=== PATIENT | female | born 1950 | race Hispanic/Latino ===

== ENCOUNTER 2019-05-08 07:38 | Day surgery (SDC) | payer MEDICARE ==
[2019-05-07 10:42] LABS: BASOPHILS % (AUTO) 0.5 % (0.0-5.0); EOSINOPHILS % (AUTO) 1.8 % (0.0-8.0); HEMATOCRIT 39.2 % (36-48); LYMPHOCYTES % (AUTO) 24.7 % (21.0-51.0); MEAN CORPUSCULAR HEMOGLOBIN 30.6 pg (27.0-33.0); MEAN CORPUSCULAR HGB CONC 33.1 g/dL (32.0-36.0); MEAN CORPUSCULAR VOLUME 92.5 fL (79-99); MONOCYTES % (AUTO) 8.2 % (3.0-13.0); NEUTROPHILS % (AUTO) 64.8 % (40.0-77.0); PLATELET COUNT (AUTO) 233 K/uL (130-400); RED BLOOD CELL COUNT(AUTO) 4.24 MIL/uL (4.00-5.50); RED CELL DISTRIBUTION WIDTH 13.5 % (11.0-15.5); WHITE BLOOD COUNT (AUTO) 6.1 K/uL (4.8-10.8)
[2019-05-07 10:51] LABS: CREATININE 0.8 mg/dL (0.5-1.5)
[2019-05-07 10:54] VITALS: BP 182/80
[2019-05-08] VITALS (18 sets, daily range): BP systolic 120–173; BP diastolic 37–78
[~2019-05-08] VITALS: Ht 144.8 cm; Wt 78.6 kg
[~2019-05-08 07:38] MED LIST: CEFAZOLIN SODIUM 1 GM VIAL IVP SCH; NAPR-1192 PO
[2019-05-08] MEDS ORDERED: LACTATED RINGERS 1000ML 1,000 ML IV ONE (07:58)
[2019-05-08] MEDS ORDERED: ONDANSETRON HCL 4 MG/2 ML VIAL ONE (08:46)
[2019-05-08] MEDS ORDERED: FENTANYL CITRATE PF 50 MCG/1 ML 2ML VIAL ONE (08:46)
[2019-05-08] MEDS ORDERED: PROPOFOL 10 MG/ML 20ML VIAL IV ONE (08:46)
[2019-05-08] MEDS ORDERED: LIDOCAINE PF 2% 5ML ABBOJECT ONE (08:46)
[2019-05-08] MEDS ORDERED: MIDAZOLAM HCL 1 MG/ML 2ML VIAL ONE (08:46)
[2019-05-08] MEDS ORDERED: DEXAMETHASONE SOD PHOSPHATE 10MG/ML 1ML VIAL ONE (08:46)
[2019-05-08] MEDS ORDERED: ROCURONIUM 10MG/1ML SYR 10 MG/ML ML ONE (08:47)
[2019-05-08] MEDS ORDERED: EPHEDRINE SULFATE 50 MG/ML AMPULE ONE (09:09)
[2019-05-08] MEDS ORDERED: GLYCOPYRROLATE 1 MG/5 ML SYRINGE ONE (09:26)
[2019-05-08] MEDS ORDERED: NEOSTIGMINE 5MG/5ML SYR IV ONE (09:26)
== END 2019-05-08 11:35 | disposition home or self-care (01) ==
LOC: DAH 07:38
PROVIDERS: ATTEND Surgery
DX: D17.0 Benign lipomatous neoplasm of skin and subcutaneous tissue of head, face and neck (principal); E11.9 Type 2 diabetes mellitus without complications; E66.01 Morbid (severe) obesity due to excess calories
CPT/HCPCS: 21554; 36415; 80048; 82948; 85025; 88304; A4450; A4452; A4930; J1100; J2001; J2250; J2405; J2704; J2710; J3010; J3490 ×2; J7120

== ENCOUNTER 2019-10-09 10:41 | Emergency (ER) | payer MEDICARE ==
[~2019-10-09 10:41] MED LIST changes: -CEFAZOLIN SODIUM 1 GM VIAL IVP SCH; -NAPR-1192 PO; +PANT40TA PO
[2019-10-09] MEDS ORDERED: ONDANSETRON HCL 4 MG/2 ML VIAL ONE (11:02)
[2019-10-09] MEDS ORDERED: KETOROLAC TROMETHAMINE 30MG/ML ONE (11:02)
[2019-10-09] MEDS ORDERED: SODIUM CHLORIDE 0.9% 1000ML 1,000 ML IV ONE (11:03)
[2019-10-09 11:14] LABS: BASOPHILS % (AUTO) 0.5 % (0.0-5.0); EOSINOPHILS % (AUTO) 4.2 % (0.0-8.0); HEMATOCRIT 37.6 % (36-48); LYMPHOCYTES % (AUTO) 22.5 % (21.0-51.0); MEAN CORPUSCULAR HEMOGLOBIN 28.9 pg (27.0-33.0); MEAN CORPUSCULAR HGB CONC 33.3 g/dL (32.0-36.0); MEAN CORPUSCULAR VOLUME 86.6 fL (79-99); MONOCYTES % (AUTO) 7.9 % (3.0-13.0); NEUTROPHILS % (AUTO) 64.9 % (40.0-77.0); PLATELET COUNT (AUTO) 227 K/uL (130-400); RED BLOOD CELL COUNT(AUTO) 4.35 MIL/uL (4.00-5.50); RED CELL DISTRIBUTION WIDTH 18.1 % (11.0-15.5); WHITE BLOOD COUNT (AUTO) 6.4 K/uL (4.8-10.8)
[2019-10-09 11:25] LABS: CREATININE 0.8 mg/dL (0.5-1.5); POTASSIUM 4.1 mmol/L (3.5-5.1)
[2019-10-09 11:30] LABS: ALBUMIN 3.3 g/dL (3.5-5.0); BILIRUBIN,DIRECT 0.1 mg/dL (0.0-0.3); BILIRUBIN,TOTAL 0.4 mg/dL (0.2-1.0); TOTAL PROTEIN, SERUM 6.8 g/dL (6.0-8.3)
[2019-10-09 12:55] LABS: APPEARANCE,URINE Clear (CLEAR); BILIRUBIN,URINE Negative (NEGATIVE); COLOR,URINE Yellow (YELLOW); GLUCOSE, URINE (UA) Negative (NEGATIVE); KETONES,URINE Negative (NEGATIVE); LEUKOCYTE ESTERASE ,URINE Trace (NEGATIVE); NITRATE,URINE Negative (NEGATIVE); OCCULT BLOOD,URINE Negative (NEGATIVE); PROTEIN,URINE Negative (NEGATIVE); UROBILINOGEN,URINE 0.2 mg/dL (0.2-1.0)
[2019-10-09 13:11] LABS: BACTERIA,URINE Rare /HPF (None Seen); RBC,URINE 0-1 /HPF (0-1); SQUAMOUS EPITHELIAL CELL,UR 0-2 /HPF (0-2); WBC,URINE 0-1 /HPF (0-1)
== END 2019-10-09 13:46 | disposition home or self-care (01) ==
LOC: EDH 10:41
DX: R10.84 Generalized abdominal pain (principal); I10 Essential (primary) hypertension
CPT/HCPCS: 36415; 74176; 80048; 80076; 81001; 82550; 83690; 84484; 85025; 93005; 96374; 96375; 99285; J1885; J2405; J7030

== ENCOUNTER → 2019-10-15 | Outpatient (CLI) | payer MEDICARE | END | disposition home or self-care (01) | LOC: OIH 09:13 | PROVIDERS: ATTEND Internal Medicine | DX: M19.012 Primary osteoarthritis, left shoulder (principal); M19.011 Primary osteoarthritis, right shoulder | CPT/HCPCS: 73030 ==

== ENCOUNTER → 2019-11-16 | Outpatient (CLI) | payer MEDICARE | END | disposition home or self-care (01) | LOC: OIH 09:01 | PROVIDERS: ATTEND Internal Medicine | DX: M06.4 Inflammatory polyarthropathy (principal) | CPT/HCPCS: 73521 ==

== ENCOUNTER 2022-09-20 21:15 | Inpatient (IN) | payer MEDICARE ==
[~2022-09-20] VITALS: Ht 149.9 cm; Wt 77.4 kg
[2022-09-20] MEDS ORDERED: 0.9%NACL 1000ML 2,000 ML IV ONE (22:00)
[2022-09-20] MEDS ORDERED: ACETAMINOPHEN 650 MG SUPPOSITORY RC ONE (22:00)
[2022-09-20 22:02] LABS: HEMATOCRIT 42.8 % (36-48); MEAN CORPUSCULAR HEMOGLOBIN 32.5 pg (27.0-33.0); MEAN CORPUSCULAR HGB CONC 33.9 g/dL (32.0-36.0); PLATELET COUNT (AUTO) 111 K/uL (130-400); RED BLOOD CELL COUNT(AUTO) 4.46 MIL/uL (4.00-5.50); RED CELL DISTRIBUTION WIDTH 12.6 % (11.0-15.5); WHITE BLOOD COUNT (AUTO) 11.1 K/uL (4.8-10.8)
[2022-09-20 22:06] LABS: BASOPHILS % (AUTO) 0.4 % (0.0-5.0); EOSINOPHILS % (AUTO) 0.2 % (0.0-8.0); LYMPHOCYTES % (AUTO) 5.8 % (21.0-51.0); NEUTROPHILS % (AUTO) 91.3 % (40.0-77.0)
[2022-09-20 22:16] LABS: CREATININE 1.4 mg/dL (0.5-1.5); POTASSIUM 4.5 mmol/L (3.5-5.1)
[2022-09-20 22:21] LABS: ALBUMIN 2.9 g/dL (3.5-5.0); TOTAL PROTEIN, SERUM 6.9 g/dL (6.0-8.3)
[2022-09-20] MEDS ORDERED: CEFTRIAXONE 1G VIAL IVP ONE (22:30)
[2022-09-20 22:31] LABS: APPEARANCE,URINE CLOUDY (CLEAR); BILIRUBIN,URINE NEGATIVE (NEGATIVE); COLOR,URINE YELLOW (YELLOW); GLUCOSE, URINE (UA) NEGATIVE (NEGATIVE); KETONES,URINE 5 mg/dL (NEGATIVE); LEUKOCYTE ESTERASE ,URINE 500 Leu/uL (NEGATIVE); NITRATE,URINE 2+ (NEGATIVE); OCCULT BLOOD,URINE MODERATE (NEGATIVE); PH,URINE 5.5 (5.0-8.0); PROTEIN,URINE 100 mg/dL (NEGATIVE); UROBILINOGEN,URINE 0.2 mg/dL (0.2-1.0)
[2022-09-20 22:48] LABS: BACTERIA,URINE MOD /HPF (None Seen); MUCUS,URINE RARE LPF (None Seen); SQUAMOUS EPITHELIAL CELL,UR FEW /HPF (0-2); WBC,URINE TNTC /HPF (0-1)
[2022-09-21] MEDS ORDERED: ZOLPIDEM TARTRATE 5 MG TAB PO PRN
[2022-09-21] MEDS ORDERED: ONDANSETRON 4MG INJ IV PRN
[2022-09-21] MEDS ORDERED: CEFTRIAXONE 1G VIAL IV SCH
[2022-09-21] MEDS ORDERED: LACTULOSE 20 GM/30 ML UDCUP PO PRN
[2022-09-21] MEDS ORDERED: ACETAMINOPHEN 325 MG TAB PO PRN ×2
[2022-09-21] MEDS ORDERED: MAG/ALUM/SIMETH 30 ML UDCUP PO PRN
[2022-09-21] MEDS ORDERED: DIPHENHYDRAMINE HCL 25 MG CAPSULE PO PRN
[2022-09-21] MEDS ORDERED: HYDRALAZINE 20MG/ML VIAL IV PRN
[2022-09-21 00:30] LABS: HEMOGLOBIN A1C 6.7 % (4.0-6.0)
[2022-09-21] MEDS ORDERED: ACETAMINOPHEN 325 MG SUPPOSITORY RC ONE (05:21)
[2022-09-21] MEDS: INSULIN HUMULIN R 100 UNIT/ML 3ML SQ SCH ×4 (07:30→21:00)
[2022-09-21 07:40] LABS: BASOPHILS % (AUTO) 0.3 % (0.0-5.0); HEMATOCRIT 38.2 % (36-48); LYMPHOCYTES % (AUTO) 1.7 % (21.0-51.0); MEAN CORPUSCULAR HEMOGLOBIN 32.5 pg (27.0-33.0); MEAN CORPUSCULAR VOLUME 95.5 fL (79-99); MONOCYTES % (AUTO) 4.4 % (3.0-13.0); NEUTROPHILS % (AUTO) 92.5 % (40.0-77.0); PLATELET COUNT (AUTO) 83 K/uL (130-400); RED CELL DISTRIBUTION WIDTH 12.5 % (11.0-15.5); WHITE BLOOD COUNT (AUTO) 11.4 K/uL (4.8-10.8)
[2022-09-21 07:48] LABS: CREATININE 1.1 mg/dL (0.5-1.5); POTASSIUM 3.2 mmol/L (3.5-5.1)
[2022-09-21 07:53] LABS: ALBUMIN 2.3 g/dL (3.5-5.0); TOTAL PROTEIN, SERUM 5.9 g/dL (6.0-8.3)
[2022-09-21] MEDS ORDERED: LIDOCAINE HCL-MPF 1% 2ML VIAL IV PRN (09:30)
[2022-09-21] MEDS: ENOXAPARIN SODIUM 40 MG/0.4 ML SYRINGE SQ SCH (09:52)
[2022-09-21] MEDS: 0.9%NACL 1000ML 1,000 ML IV SCH ×3 (09:53→20:03)
[2022-09-21] MEDS: PANTOPRAZOLE 40 MG/VIAL IVP SCH (09:53)
[2022-09-21] MEDS ORDERED: LIDOCAINE HCL 1% 10 ML VIAL ONE (09:56)
[2022-09-21] MEDS: POTASSIUM CHLORIDE 20MEQ/100ML 100 ML IV PRN (10:00)
[2022-09-21 12:05] VITALS: BP 152/74
[2022-09-21] MEDS: ZOSYN 3.375GM +NS 50ML IV SCH ×2 (15:50→18:30)
[2022-09-21 16:00] VITALS: BP 132/80
[2022-09-21 21:48] VITALS: BP 151/62
[2022-09-22] VITALS (7 sets, daily range): BP systolic 137–181; BP diastolic 58–94
[2022-09-22] MEDS: ZOSYN 3.375GM +NS 50ML IV SCH ×3 (02:03→17:22)
[2022-09-22 05:08] LABS: HEMATOCRIT 33.5 % (36-48); MEAN CORPUSCULAR HEMOGLOBIN 32.2 pg (27.0-33.0); MEAN CORPUSCULAR HGB CONC 33.4 g/dL (32.0-36.0); MEAN CORPUSCULAR VOLUME 96.3 fL (79-99); RED BLOOD CELL COUNT(AUTO) 3.48 MIL/uL (4.00-5.50); RED CELL DISTRIBUTION WIDTH 12.9 % (11.0-15.5); WHITE BLOOD COUNT (AUTO) 10.7 K/uL (4.8-10.8)
[2022-09-22 05:16] LABS: CREATININE 0.9 mg/dL (0.5-1.5); POTASSIUM 3.3 mmol/L (3.5-5.1)
[2022-09-22] MEDS: 0.9%NACL 1000ML 1,000 ML IV SCH ×2 (05:49→21:20)
[2022-09-22] MEDS: INSULIN HUMULIN R 100 UNIT/ML 3ML SQ SCH ×4 (05:49→21:22)
[2022-09-22] MEDS: POTASSIUM CHLORIDE 20MEQ/100ML 100 ML IV PRN (06:14)
[2022-09-22] MEDS: ENOXAPARIN SODIUM 40 MG/0.4 ML SYRINGE SQ SCH (09:00)
[2022-09-22] MEDS ORDERED: MELO10CA3 PO (10:06)
[2022-09-22] MEDS: PANTOPRAZOLE 40 MG/VIAL IVP SCH (10:07)
[2022-09-23] MEDS: ZOSYN 3.375GM +NS 50ML IV SCH ×2 (02:51→09:43)
[2022-09-23 04:00] VITALS: BP 171/77
[2022-09-23 04:06] LABS: BASOPHILS % (AUTO) 0.4 % (0.0-5.0); EOSINOPHILS % (AUTO) 0.6 % (0.0-8.0); HEMATOCRIT 32.7 % (36-48); LYMPHOCYTES % (AUTO) 7.9 % (21.0-51.0); MEAN CORPUSCULAR HEMOGLOBIN 32.1 pg (27.0-33.0); MEAN CORPUSCULAR HGB CONC 33.9 g/dL (32.0-36.0); MEAN CORPUSCULAR VOLUME 94.5 fL (79-99); MONOCYTES % (AUTO) 11.8 % (3.0-13.0); NEUTROPHILS % (AUTO) 78.1 % (40.0-77.0); PLATELET COUNT (AUTO) 75 K/uL (130-400); RED BLOOD CELL COUNT(AUTO) 3.46 MIL/uL (4.00-5.50); RED CELL DISTRIBUTION WIDTH 12.8 % (11.0-15.5); WHITE BLOOD COUNT (AUTO) 6.8 K/uL (4.8-10.8)
[2022-09-23 04:15] LABS: ALBUMIN 1.8 g/dL (3.5-5.0); CREATININE 0.7 mg/dL (0.5-1.5); MAGNESIUM 1.5 mg/dL (1.80-2.40); POTASSIUM 3.2 mmol/L (3.5-5.1); TOTAL PROTEIN, SERUM 5.4 g/dL (6.0-8.3)
[2022-09-23] MEDS: GUAIFENESIN-DM 200/20 MG 10 ML PO PRN (04:26)
[2022-09-23] MEDS ORDERED: KCL 20 MEQ ERTAB PO PRN (05:00)
[2022-09-23] MEDS: MAGNESIUM 2GM PREMIX 50ML 50 ML IV PRN (05:20)
[2022-09-23 07:30] VITALS: BP 162/84
[2022-09-23] MEDS: INSULIN HUMULIN R 100 UNIT/ML 3ML SQ SCH ×4 (07:30→20:42)
[2022-09-23] MEDS: PANTOPRAZOLE 40 MG/VIAL IVP SCH (09:42)
[2022-09-23] MEDS: ENOXAPARIN SODIUM 40 MG/0.4 ML SYRINGE SQ SCH (09:43)
[2022-09-23] MEDS: POTASSIUM CHLORIDE 10% ELIXIR 20 MEQ/15 ML UDCUP PO PRN ×2 (09:46→17:44)
[2022-09-23] MEDS ORDERED: HYDRALAZINE 25MG TABLET PO SCH (10:30)
[2022-09-23 11:00] VITALS: BP 156/66
[2022-09-23] MEDS: 0.9%NACL 1000ML 1,000 ML IV SCH ×2 (15:13→20:53)
[2022-09-23] MEDS: CEFTRIAXONE 2GM VIAL IVP SCH (15:37)
[2022-09-23 16:00] VITALS: BP 160/55
[2022-09-23] MEDS: HYDRALAZINE 25MG TABLET PO SCH ×2 (17:43→20:44)
[2022-09-23 20:00] VITALS: BP 138/110
[2022-09-24] VITALS: BP 147/76
[2022-09-24 03:58] VITALS: BP 142/81
[2022-09-24] MEDS: GUAIFENESIN-DM 200/20 MG 10 ML PO PRN (03:58)
[2022-09-24 04:53] LABS: BASOPHILS % (AUTO) 0.5 % (0.0-5.0); EOSINOPHILS % (AUTO) 1.4 % (0.0-8.0); HEMATOCRIT 34.6 % (36-48); MEAN CORPUSCULAR HEMOGLOBIN 32.1 pg (27.0-33.0); MEAN CORPUSCULAR HGB CONC 33.8 g/dL (32.0-36.0); MEAN CORPUSCULAR VOLUME 95.1 fL (79-99); MONOCYTES % (AUTO) 14.9 % (3.0-13.0); NEUTROPHILS % (AUTO) 68.1 % (40.0-77.0); PLATELET COUNT (AUTO) 84 K/uL (130-400); RED BLOOD CELL COUNT(AUTO) 3.64 MIL/uL (4.00-5.50); RED CELL DISTRIBUTION WIDTH 12.9 % (11.0-15.5); WHITE BLOOD COUNT (AUTO) 5.6 K/uL (4.8-10.8)
[2022-09-24 05:05] LABS: ALBUMIN 1.8 g/dL (3.5-5.0); CREATININE 0.7 mg/dL (0.5-1.5); MAGNESIUM 1.7 mg/dL (1.80-2.40); POTASSIUM 3.8 mmol/L (3.5-5.1); TOTAL PROTEIN, SERUM 5.5 g/dL (6.0-8.3)
[2022-09-24] MEDS: MAGNESIUM 2GM PREMIX 50ML 50 ML IV PRN (05:32)
[2022-09-24] MEDS: INSULIN HUMULIN R 100 UNIT/ML 3ML SQ SCH ×2 (06:51→11:30)
[2022-09-24 07:30] VITALS: BP 112/79
[2022-09-24] MEDS: ENOXAPARIN SODIUM 40 MG/0.4 ML SYRINGE SQ SCH (08:55)
[2022-09-24] MEDS: HYDRALAZINE 25MG TABLET PO SCH ×2 (08:55→13:45)
[2022-09-24] MEDS: PANTOPRAZOLE 40 MG/VIAL IVP SCH (08:55)
[2022-09-24] MEDS ORDERED: AMLO5TAB4 PO (10:26)
[2022-09-24] MEDS ORDERED: HYDR25 PO (10:26)
[2022-09-24] MEDS ORDERED: MAGNESIUM OXIDE 400 MG TABLET PO SCH (11:00)
[2022-09-24 11:30] VITALS: BP 144/78
[2022-09-24] MEDS: CEFTRIAXONE 2GM VIAL IVP SCH (13:44)
== END 2022-09-24 14:40 | disposition home or self-care (01) | DRG 871 ==
LOC: EDH 21:15 → EDHIP 23:57 → 4BH 09-21 08:20
PROVIDERS: ADMIT Hospitalist; ATTEND Hospitalist
DX: A41.50 Gram-negative sepsis, unspecified (principal); G93.41 Metabolic encephalopathy; N17.9 Acute kidney failure, unspecified; N39.0 Urinary tract infection, site not specified; Z20.822 Contact with and (suspected) exposure to COVID-19; R65.20 Severe sepsis without septic shock; E86.0 Dehydration; E11.65 Type 2 diabetes mellitus with hyperglycemia; B96.20 Unspecified Escherichia coli [E. coli] as the cause of diseases classified elsewhere; E66.9 Obesity, unspecified; E87.6 Hypokalemia; I10 Essential (primary) hypertension; Z74.01 Bed confinement status; Z79.899 Other long term (current) drug therapy; Z83.3 Family history of diabetes mellitus; Z87.11 Personal history of peptic ulcer disease; Z87.440 Personal history of urinary (tract) infections; Z90.710 Acquired absence of both cervix and uterus; Z68.34 Body mass index [BMI] 34.0-34.9, adult
CPT/HCPCS: 36415; 70450; 71045; 80048; 80053; 81001; 82140; 82948; 83036; 83605; 83735; 83880; 84484; 85025; 85027; 87040; 87077; 87088; 87186; 87635; 87804; 93005; 99291; C1894; C9113; C9803; G0378; J0696; J1650; J1815; J2543; J3475; J3480; J3490; J7030; Q0163

== ENCOUNTER 2024-01-09 17:31 | Emergency (ER) | payer MEDICARE ==
[~2024-01-09] VITALS: Ht 152.4 cm; Wt 64.4 kg
[~2024-01-09 17:31] MED LIST changes: +AMLO5TAB4 PO; +HYDR25 PO; +MELO10CA3 PO
[2024-01-09 17:38] VITALS: BP 129/69; PULSE 105; RESP 16
== END 2024-01-09 21:13 | disposition left against medical advice (07) ==
LOC: EDH 17:31
DX: R63.0 Anorexia (principal); Z53.21 Procedure and treatment not carried out due to patient leaving prior to being seen by health care provider
CPT/HCPCS: 99281